=== PATIENT | female | born 1960 | race Caucasian/White ===

== ENCOUNTER 2017-03-21 07:51 | Outpatient (CLI) | payer OTHER ==
--- NOTE | 2017-03-21 10:04 | CT ---
CT ABDOMEN AND PELVIS WITH AND WITHOUT IV CONTRAST: HISTORY: UTI. Microhematuria. Overactive bladder. FINDINGS: The lung bases are unremarkable. No free air, free fluid, or lymphadenopathy is seen in the abdomen or pelvis. No calcified gallstones are identified. The liver, spleen, pancreas, and adrenal gland s are normal. No calculi are seen in the kidneys, the ureters, or the urinary bladder. No hydroureteronephrosis i s noted on either side. There are small cysts in the kidneys bilaterally. No enhancing renal mass is identified. There is normal contrast excretion into the pelvicalyceal system, the ureters, and t he urinary bladder. The uterus is present. There is fecal material in the colon. The small bowel loops are not abnorma lly dilated. A normal appearing appendix is present. There is no evidence of aneurysmal dilatation of the abdominal aorta. There are degenerative changes in the spine. There is mild compression of the T12 vertebral body. IMPRESSION: 1. No CT evidence of urinary tract calculi or obstruction. 2. Bilateral renal cysts. POS: ROSINA
[2017-03-21] MEDS ORDERED: Iopamidol 370 76% 100 ML VIAL ONE (15:23)
== END 2017-03-21 07:52 | disposition home or self-care (01) ==
LOC: CT 07:51
PROVIDERS: ATTEND Urology
DX: N39.0 Urinary tract infection, site not specified (principal); R31.29 Other microscopic hematuria; N28.1 Cyst of kidney, acquired
CPT/HCPCS: 74178

== ENCOUNTER 2018-05-16 12:02 | Outpatient (CLI) | payer OTHER | END 2018-05-16 12:03 | disposition home or self-care (01) | LOC: BICMAMMO 12:02 | PROVIDERS: ATTEND Family Medicine | DX: Z12.31 Encounter for screening mammogram for malignant neoplasm of breast (principal); N64.89 Other specified disorders of breast | CPT/HCPCS: 77063; 77067 ==

== ENCOUNTER 2018-06-07 12:58 | Outpatient (CLI) | payer OTHER ==
--- NOTE | 2018-06-07 15:16 | ULT ---
ULTRASOUND LEFT BREAST: Date: 06/07/18 INDICATION: Follow-up mass density seen in retroareolar region of left breast on mammogram FINDINGS: There is a circumscribed, oblong-shaped, solid mass in retroareolar region of the left breast measuri ng 1.6 x 0.8 x 3.0 cm. Overall appearance may represent a fibroadenoma; however, biopsy is necessary for diagnosis. IMPRESSION: BI-RADS Category 4 - Suspicious abnormality. Ultrasound-guided core biopsy is recommended and will be scheduled. POS: ROSINA
== END 2018-06-07 12:59 | disposition home or self-care (01) ==
LOC: BICMAMMO 12:58
PROVIDERS: ATTEND Family Medicine
DX: R92.2 Inconclusive mammogram (principal)
CPT/HCPCS: G0279

== ENCOUNTER → 2018-06-20 | Day surgery (SDC) | payer OTHER ==
--- NOTE | 2018-06-20 14:31 | ULT ---
ULTRASOUND GUIDED LEFT BREAST MASS BIOPSY: HISTORY: Breast mass. COMPARISON: Multiple prior mammograms, the recent 06/07/2018. FINDINGS: The patient was brought to the ultrasound suite. All questions were answered. The patient's left breast was prepped and draped in normal sterile fashion. Informed consent was obt ained. Timeout performed. A total of 5 mL of Lidocaine was instilled into the superficial and deep soft tissues. After adequat e anesthesia, a small dermatotomy was made. Using a 14-gauge needle, a total of four 22 mm cores was obtained. The patient tolerated the procedure well without complication. IMPRESSION: Technically successful left breast mass biopsy. Pathology is pending. POS: OFF
== END ==
LOC: BICULT 12:44
PROVIDERS: ATTEND Family Medicine
PROC: 0HBU3ZX Excision of Left Breast, Percutaneous Approach, Diagnostic (ICD-10-PCS; principal; 2018-06-20)
DX: D24.2 Benign neoplasm of left breast (principal); Z88.8 Allergy status to other drugs, medicaments and biological substances; Z79.899 Other long term (current) drug therapy
CPT/HCPCS: 19083; 88305